=== PATIENT | female | born 1995 | race Hispanic/Latino ===

== ENCOUNTER 2024-03-04 12:57 | Inpatient (IN) | payer OTHER ==
[2024-03-04 13:51] LABS: Fetal Membranes Rupture RUPTURE DETECTED (No Rupture)
[2024-03-04] MEDS ORDERED: HYDROcodone/Acetaminophen 5/325 mg Tablet PO PRN (14:00)
[2024-03-04] MEDS ORDERED: Carboprost 250 MCG/ML AMP IM PRN (14:00)
[2024-03-04] MEDS ORDERED: Diphenoxylate HCl/Atropine Tablet PO PRN (14:00)
[2024-03-04] MEDS ORDERED: Ondansetron PF 4 MG/2 ML Vial IVP PRN ×2 (14:00→20:51)
[2024-03-04] MEDS ORDERED: Methylergonovine 0.2 MG/ML VIAL IM PRN (14:00)
[2024-03-04] MEDS ORDERED: Oxytocin 30 units/NS 500 ML 500 ML IV SCH ×2 (14:00→21:15)
[2024-03-04] MEDS ORDERED: Misoprostol 200 MCG TAB PR PRN (14:00)
[2024-03-04] MEDS ORDERED: Promethazine HCl 25 MG/ML VIAL IM PRN (14:00)
[2024-03-04] MEDS ORDERED: Tranexamic Acid 1,000 MG/10 ML VIAL IVP PRN (14:00)
[2024-03-04] MEDS ORDERED: fentaNYL 50 mcg/mL 1 mL Vial SLOW IVP PRN (14:00)
[2024-03-04] MEDS ORDERED: Lidocaine 1% (PF) 30 ML VIAL SC PRN (14:00)
[2024-03-04] MEDS ORDERED: hydrALAZINE 20 MG/ML VIAL SLOW IVP PRN ×2 (14:00→20:51)
[2024-03-04 14:22] VITALS: BMI 36.4
[2024-03-04 15:26] LABS: Hematocrit 30.2 % (34.9-44.5); Hemoglobin 9.8 g/dL (12.0-15.5); Mean Corpuscular HGB CONC 32.5 g/dL (32.0-36.0); Mean Corpuscular Hemoglobin 23.4 pg (27.0-33.0); Mean Corpuscular Volume 72.1 fL (81.6-98.3); Mean Platelet Volume 11.5 fL (7.4-10.4); Platelet Count 208 10x3/uL (150-450); RBC Distribution Width 16.3 % (11.5-14.5); Red Blood Cell (RBC) Count 4.19 10x6/uL (3.90-5.03); White Blood Cell (WBC) Count 8.6 10x3/uL (3.5-10.5)
[2024-03-04] MEDS: Lactated Ringer's 1,000 ML IV SCH (15:33)
[2024-03-04] MEDS: Oxytocin 30 units/NS 500 ML 500 ML IV SCH ×2 (15:34→20:46)
[2024-03-04 16:01] LABS: HBsAg Index 0.23 S/CO (0-0.99); Hep B Surf Ag - L&D Non-Reactive S/CO (NonReactive)
[2024-03-04 16:02] LABS: Syphilis Antibody Nonreactive (Nonreactive); Syphilis Antibody Index 0.03 S/CO (<1.00 Non-Reactive)
[2024-03-04] MEDS: Ibuprofen 800 MG TAB PO PRN (19:18)
[2024-03-04] MEDS: Acetaminophen 500 MG TAB PO PRN (19:34)
[2024-03-04] MEDS ORDERED: Benzocaine-Menthol 82.5 ML CAN TOP PRN (20:51)
[2024-03-04] MEDS ORDERED: Lanolin Ointment 7 GM TUBE TOP PRN (20:51)
[2024-03-04] MEDS ORDERED: Bisacodyl 10 MG SUPP PR PRN (20:51)
[2024-03-04] MEDS ORDERED: Milk Of Magnesia 30 ML UDCUP PO PRN (20:51)
[2024-03-04] MEDS ORDERED: diphenhydrAMINE 25 MG CAP PO PRN (20:51)
[2024-03-04] MEDS ORDERED: Boostrix 0.5 ML (Tdap) VIAL (>/=7 yrs of age) IM ONE (20:51)
[2024-03-04] MEDS: Docusate 100 MG CAP PO SCH (22:30)
[2024-03-05] MEDS: HYDROcodone/Acetaminophen 5/325 mg Tablet PO PRN (00:38)
[2024-03-05] MEDS: Ibuprofen 800 MG TAB PO SCH (02:55)
[2024-03-05] MEDS: Prenatal Vitamin 1 TAB PO SCH (09:04)
[2024-03-05] MEDS: Ferrous Sulfate 325 MG TAB PO SCH (09:04)
[2024-03-06 09:10] VITALS: BP 115/72; TEMP 98.3
== END 2024-03-06 13:10 | disposition home or self-care (01) | DRG 807 ==
LOC: CSHLD/OP 12:57 → CSHLD 14:04 → CSHPP 21:20
PROVIDERS: ADMIT Family Medicine; ATTEND Family Medicine
PROC: 10E0XZZ Delivery of Products of Conception, External Approach (ICD-10-PCS; principal; 2024-03-04)
PROC: 0KQM0ZZ Repair Perineum Muscle, Open Approach (ICD-10-PCS; 2024-03-04)
DX: O42.02 Full-term premature rupture of membranes, onset of labor within 24 hours of rupture (principal); Z37.0 Single live birth; Z3A.38 38 weeks gestation of pregnancy; O70.1 Second degree perineal laceration during delivery; O69.81X0 Labor and delivery complicated by cord around neck, without compression, not applicable or unspecified; Z91.013 Allergy to seafood
CPT/HCPCS: 84112; 85027; 86780; 86850; 86900; 86901; 87340; 99285; J2590; J7120

== ENCOUNTER 2024-03-07 00:37 | Emergency (ER) | payer OTHER ==
[2024-03-07] MEDS ORDERED: Ketorolac Tromethamine 30 MG (1 mL) VIAL ONE (01:13)
[2024-03-07 01:48] LABS: #Basophils 0.02 10x3/uL (0.0-0.2); #Eosinphils 0.13 10x3/uL (0.0-0.5); #Monocytes 0.46 10x3/uL (0.0-1.1); #Neutrophils 8.21 10x3/uL (1.5-8.4); %Basophils 0.2 % (0.0-2.0); %Eosinophils 1.3 % (0.0-6.0); %Lymphocytes 11.3 % (18.0-47.0); %Monocytes 4.6 % (0.0-10.0); Hematocrit 29.3 % (34.9-44.5); Hemoglobin 9.4 g/dL (12.0-15.5); Mean Corpuscular HGB CONC 32.1 g/dL (32.0-36.0); Mean Corpuscular Volume 71.8 fL (81.6-98.3); Mean Platelet Volume 11.2 fL (7.4-10.4); Platelet Count 228 10x3/uL (150-450); RBC Distribution Width 16.6 % (11.5-14.5); Red Blood Cell (RBC) Count 4.08 10x6/uL (3.90-5.03)
[2024-03-07 01:49] LABS: ALT (SGPT) 13 U/L (8-55); AST (SGOT) 17 U/L (5-34); Albumin 2.7 g/dL (3.5-5.0); Alkaline Phosphatase 110 U/L (40-110); Anion Gap 17 mmol/L (10-20); BUN (Urea Nitrogen) 9 mg/dL (7.0-18.7); Bilirubin, Total 0.3 mg/dL (0.2-1.2); Calc. Creatinine Clearance 0 mL/min (70-130); Calcium 8.8 mg/dL (7.8-10.44); Carbon Dioxide 20 mmol/L (22-29); Chloride 105 mmol/L (98-107); Estimated GFR 121; Globulin 3.1 g/dL (2.4-3.5); Glucose 89 mg/dL (70-105); Lipase 13 U/L (8-78); Magnesium 1.6 mg/dL (1.6-2.6); Potassium 3.9 mmol/L (3.5-5.1); Protein, Total 5.8 g/dL (6.0-8.3); Sodium 138 mmol/L (136-145)
[2024-03-07 01:55] LABS: Troponin I Less than 0.010 ng/mL (< 0.028)
[2024-03-07 02:09] LABS: Influenza A by NAA Not Detected (NotDetected); Influenza B by NAA Not Detected (NotDetected); SARS-CoV-2 NAA Rapid Test Not Detected (NotDetected)
[2024-03-07 02:16] LABS: Polychromasia SLIGHT = 2-3 cells (100X) (0-2/hpf)
[2024-03-07 02:17] LABS: Anisocytosis MODERATE=16-30 cells (100X) (0-5/hpf); Tear Drops SLIGHT = 2-5 cells (100X) (0-1/hpf)
[2024-03-07 02:18] LABS: Ovalocytes SLIGHT = 2-5 cells (100X) (0-1/hpf)
[2024-03-07] MEDS ORDERED: Amoxicillin/Potassium Clav 875 MG TAB ONE (02:33)
== END 2024-03-07 02:33 | disposition home or self-care (01) ==
LOC: CSHERS 00:37
DX: J18.9 Pneumonia, unspecified organism (principal)
CPT/HCPCS: 36415; 71045; 80053; 83605; 83690; 83735; 83880; 84484; 85025; 87040; 93005; 96374; J1885